=== PATIENT | male | born 1975 | race Caucasian/White ===

== ENCOUNTER 2020-02-05 14:20 | Emergency (ER) | payer SELFPAY ==
[~2020-02-05] VITALS: Ht 180.3 cm; Wt 95.5 kg
[2020-02-05 14:24] VITALS: BP 167/128
[2020-02-05] MEDS ORDERED: LISI-661 PO (14:24)
== END 2020-02-05 15:04 | disposition left against medical advice (07) ==
LOC: EMS 14:46
DX: Z53.21 Procedure and treatment not carried out due to patient leaving prior to being seen by health care provider (principal)